=== PATIENT | male | born 1985 | race Caucasian/White ===

== ENCOUNTER 2017-04-02 17:00 | Emergency (ER) | payer OTHER ==
[~2017-04-02] VITALS: Wt 86.4 kg
[2017-04-02] MEDS ORDERED: IBUPROFEN 800 MG TAB PO ONE (18:00)
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
[2017-04-02] MEDS ORDERED: IBUP800T25 PO (19:10)
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
== END 2017-04-02 19:56 | disposition home or self-care (01) ==
LOC: FTE 17:00
DX: S59.902A Unspecified injury of left elbow, initial encounter (principal); S06.0X0A Concussion without loss of consciousness, initial encounter; V18.4XXA Pedal cycle driver injured in noncollision transport accident in traffic accident, initial encounter
CPT/HCPCS: 29105; 70450; 73080; Z7502; Z7610